=== PATIENT | male | born 1985 | race Caucasian/White ===

== ENCOUNTER 2017-12-14 05:29 | Emergency (ER) | payer MEDICAID ==
[2017-12-14] MEDS ORDERED: ACETAMINOPHEN 500 MG TABLET PO STA (05:42)
[2017-12-14] MEDS ORDERED: DEXAMETHASONE 10 MG/ML VIAL PO STA (05:42)
[2017-12-14] MEDS ORDERED: KETOROLAC 60 MG/2 ML VIAL IM STA (05:42)
--- NOTE | 2017-12-14 05:52 | ED Physician Documentation ---
PD HPI BACK PAIN - Stated complaint Stated Complaint: BACK PX - Chief complaint Chief Complaint: Back Pain - History obtained from History obtained from: Patient, Family - History of Present Illness Timing - onset: How many weeks ago (1) Timing - details: Intermittant, Waxing and waning Location: Upper, Right Quality: Pain, Spasm, Similar to prior episodes Associated symptoms: No: Fever, Weakness, Numbness, Incontinent of urine Contributing factors: Lifting Similar symptoms before: Work up / diagnostics, Treatment Recently seen: Not recently seen - Additional information Additional information: Patient is a 32 year old male with a history of cebral palsy who is presenting to the emergency department for back pain. Patient and mother state that the patient fell about a week ago and they have trying to work with his rehab doctors. patient had an extended training session on his bike which led to a spasm in the right side of his back. the pain has improved with tylenol. Review of Systems Constitutional: denies: Fever, Chills Eyes: denies: Decreased vision Ears: reports: Reviewed and negative Nose: reports: Reviewed and negative Throat: reports: Reviewed and negative Respiratory: reports: Reviewed and negative GI: denies: Nausea, Vomiting : denies: Dysuria, Frequency, Hesitancy, Hematuria Skin: denies: Rash, Lesions, Abrasion (s), Laceration (s) Musculoskeletal: reports: Back pain Neurologic: denies: Headache PD PAST MEDICAL HISTORY - Past Medical History Past Medical History: Yes Neuro: Cerebral palsy - Past Surgical History Past Surgical History: Yes - Present Medications Home Medications: Ambulatory Orders Medication Instructions Recorded Confirmed diazePAM [Valium] 5 - 10 mg PO TID PRN #15 tablet 12/14/17 - Allergies Allergies/Adverse Reactions: Allergies Allergy/AdvReac Type Severity Reaction Status Date / Time diphenhydramine Allergy Unknown Verified 12/14/17 05:42 [From Benadryl] morphine Allergy Emesis Verified 12/14/17 05:42 - Social History Does the pt smoke?: No Smoking Status: Never smoker Does the pt drink ETOH?: No Does the pt have substance abuse?: No - POLST Patient has POLST: No PD ED PE NORMAL - General General: Alert and oriented X 3, No acute distress - HEENT HEENT: Atraumatic, Moist mucous membranes - Cardiac Cardiac: RRR, No murmur - Respiratory Respiratory: No respiratory distress - Abdomen Abdomen: Soft - Derm Derm: Normal color, Warm and dry - Neuro Neuro: Alert and oriented X 3, Normal speech PD ED PE EXPANDED - Back Back: Soft tissue tenderness (tenderness and hypertonicity of right paraspinal muscles) Results - Vitals Vitals: Vital Signs - 24 hr 12/14/17 12/14/17 05:34 06:02 Temperature 36.4 C L Heart Rate 67 62 Respiratory 18 18 Rate Blood Pressure 150/99 H 135/95 H O2 Saturation 96 93 Oxygen O2 Source Room air PD MEDICAL DECISION MAKING - ED course Complexity details: reviewed old records, reviewed results, re-evaluated patient , considered differential, d/w patient, d/w family ED course: patient was seen and examined at bedside. patient was in no acute distress. More thorough diagnostics were offered but mother stated this was a recurrent problem so they weren't necessary. patient was treated with toradol, decadron and tylenol. Prescriptions were written. patient required no further work up and was stable for discharge with outpatient follow up. Departure - Departure Disposition: 01 Home, Self Care Clinical Impression: Back muscle spasm Condition: Good Instructions: ED Spasm Back No Trauma Follow-Up: Margarita Lott DO [Primary Care Provider] - As Needed Prescriptions: diazePAM [Valium] 5 - 10 mg PO TID PRN #15 tablet PRN Reason: Spasms Comments: Your symptoms today are likely secondary to muscle spams. You should continue working with physical therapy. You can use ice or heat as needed and naproxen and tylenol for pain. You can try valium for additional spasm. You should follow up with your doctor if your sympotms persist. You may return to the emergency department at any time for new worsening or uncontrollable symptoms. Discharge Date/Time: 12/14/17 06:02
[2017-12-14] MEDS ORDERED: CHERRY SYRUP 10 ML UDC PO ONE (05:56)
[2017-12-14 06:02] VITALS: BP 135/95
== END 2017-12-14 06:02 | disposition home or self-care (01) ==
LOC: ED 05:29
DX: M62.830 Muscle spasm of back (principal); G80.9 Cerebral palsy, unspecified
CPT/HCPCS: 96372; 99283; A9270

== ENCOUNTER 2019-08-18 12:42 | Outpatient (CLI) | payer MEDICAID ==
--- NOTE | 2019-08-19 11:54 | MRI Report ---
Reason: ACQ LUMBAR SPONDYLOLISTHESIS Procedure Date: 08/18/2019 Accession Number: [id number] / [id number] Procedure: MRI - Lumbar Spine W/O CPT Code: FULL RESULT: EXAM: MRI LUMBAR SPINE WITHOUT CONTRAST EXAM DATE: 08/18/2019 02:24 PM. CLINICAL HISTORY: ACQ LUMBAR SPONDYLOLISTHESIS. COMPARISON: 12/17/2017 lumbar spine radiographs.. TECHNIQUE: Multiplanar, multisequence T1-weighted and fluid-sensitive sequences of the lumbar spine from T12 to S1 without contrast. Other: None. FINDINGS: Spinal Canal: The conus terminates at L2. The conus medullaris and cauda equina are unremarkable. Alignment: L5 spondylolysis with grade 1 anterolisthesis of L5 on S1 measuring 7 mm. Mild levoscoliosis and not well evaluated on the localization sequence. Bone Marrow: Five [id number] lumbar vertebral bodies are assumed. No acute fractures. Chronic L5 spondylolysis. Intraosseous hemangioma within the T12 vertebral body. Otherwise normal marrow signal. There is congenital shortening of the pedicles throughout the lumbar spine. Disk Levels/Facets: T12-L1: Baseline central canal stenosis with a superimposed right subarticular disk protrusion and mild facet arthropathy resulting in asymmetric right lateral recess stenosis. No foraminal stenosis. L1-L2: Baseline central canal stenosis. Shallow right central disk protrusion. No foraminal stenosis. Mild facet arthropathy. L2-L3: Baseline central canal stenosis. No disk bulge or protrusion. No foraminal stenosis. L3-L4: Baseline central canal stenosis. Shallow central disk protrusion and mild facet arthropathy result in mild central canal and bilateral foraminal stenosis. L4-L5: Baseline central canal stenosis. Shallow central disk protrusion and mild facet arthropathy results in mild central canal and bilateral foraminal stenosis. L5-S1: L5 spondylolysis with grade 1 anterolisthesis and uncovering of the disk, resulting in moderate central canal and bilateral foraminal stenosis. Musculature: Normal. No edema or fatty atrophy. Other: The partially visualized retroperitoneum is unremarkable. IMPRESSION: 1. L5 spondylolysis with grade 1 anterolisthesis and uncovering of the disk results in moderate central canal and bilateral foraminal stenosis. 2. 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 3. Shallow central disk protrusions at L3-L4 and L4-L5 with mild facet arthropathy, resulting in mild central canal and bilateral foraminal stenoses. 4. At T12-L1, a right subarticular disk protrusion and mild facet arthropathy results in asymmetric right lateral recess stenosis with superimposed baseline central canal stenosis. Comment: The following findings are so common in adults without low back pain that while we report their presence, they must be interpreted with caution and in the context of the clinical situation. (Reference Eliok et al, Spine 2001) Prevalence of findings in patients without low back pain: Disk degeneration (any evidence): 92% Disk desiccation/T2 signal loss: 83% Disk height loss: 56% Disk bulge: 64% Disk protrusion: 32% Annular tear/high intensity zone: 38% RADIA
[2019-08-19] MEDS ORDERED: BUFFERED LIDOCAINE 10 ML SYRINGE IU ONE (14:17)
--- NOTE | 2019-08-21 10:44 | XRAY Report ---
Reason: COUGH AFTER EATING Procedure Date: 08/18/2019 Accession Number: [id number] / [id number] Procedure: FL - Modified Barium Swallow W/SP CPT Code: FULL RESULT: EXAM: MODIFIED BARIUM SWALLOW EXAM DATE: 08/18/2019 01:40 PM. CLINICAL HISTORY: Cough after eating. COMPARISON: None. TECHNIQUE: Under the direction of speech pathology, patient swallowed various consistencies of barium under lateral fluoroscopic observation of the neck. Fluoroscopy Time: 1 minute 15 seconds. Number of Images: 120. FINDINGS: Swallowing Mechanism: Normal oral phase and swallowing reflex. Airway Protection: Normal epiglottic motion. No episodes of tracheal penetration or aspiration with all consistencies of barium. Pharynx: Normal. No significant vallecular or piriform sinus contrast pooling. Other: None. IMPRESSION: No aspiration detected. RADIA
== END 2019-08-18 12:43 | disposition home or self-care (01) ==
LOC: DI 12:42
PROVIDERS: ATTEND Family Medicine
DX: M43.06 Spondylolysis, lumbar region (principal); M51.26 Other intervertebral disc displacement, lumbar region; M51.25 Other intervertebral disc displacement, thoracolumbar region; M47.816 Spondylosis without myelopathy or radiculopathy, lumbar region; M47.815 Spondylosis without myelopathy or radiculopathy, thoracolumbar region; R05 Cough
CPT/HCPCS: 72148; 74230

== ENCOUNTER 2020-12-30 18:33 | Outpatient (CLI) | payer MEDICAID | END 2020-12-30 18:34 | disposition left against medical advice (07) | LOC: EMS 18:33 | DX: M79.632 Pain in left forearm (principal); R26.81 Unsteadiness on feet; W17.89XA Other fall from one level to another, initial encounter; Y92.008 Other place in unspecified non-institutional (private) residence as the place of occurrence of the external cause ==

== ENCOUNTER 2021-04-19 08:00 | Outpatient (CLI) | payer MEDICAID ==
[2021-04-19 18:46] LABS: BASOPHILS # (AUTO) 0.1 10^3/uL (0.0-0.1); BASOPHILS % (AUTO) 1.2 %; EOSINOPHILS # (AUTO) 0.3 10^3/uL (0.0-0.7); EOSINOPHILS % (AUTO) 5.4 %; HCT - HEMATOCRIT 44.7 % (42.0-52.0); HGB - HEMOGLOBIN 15.6 g/dL (14.0-18.0); LYMPHOCYTES # (AUTO) 1.3 10^3/uL (1.5-3.5); LYMPHOCYTES % (AUTO) 22.4 %; MEAN CORPUSCULAR HEMOGLOBIN 30.1 pg (27.0-31.0); MEAN CORPUSCULAR HGB CONC 34.9 g/dL (32.0-36.0); MEAN CORPUSCULAR VOLUME 86.3 fL (80.0-94.0); MONOCYTES # (AUTO) 0.5 10^3/uL (0.0-1.0); MONOCYTES % (AUTO) 8.1 %; NEUTROPHILS # (AUTO) 3.7 10^3/uL (1.5-6.6); NEUTROPHILS % (AUTO) 62.7 %; PLT - PLATELET COUNT 177 10^3/uL (130-450); RED BLOOD COUNT 5.18 10^6/uL (4.70-6.10); RED CELL DISTRIBUTION WIDTH 12.8 % (12.0-15.0)
[2021-04-19 19:04] LABS: ALBUMIN 4.5 g/dL (3.2-5.5); ALBUMIN/GLOBULIN RATIO 1.7 (1.0-2.2); BILIRUBIN,TOTAL 1.2 mg/dL (0.2-1.0); CALCIUM 9.5 mg/dL (8.5-10.3); CREATININE 1.1 mg/dL (0.6-1.2); TOTAL PROTEIN 7.2 g/dL (6.7-8.2)
[2021-04-19 19:17] LABS: THYROID STIMULATING HORMONE 0.62 uIU/mL (0.34-5.60)
== END 2021-04-19 23:59 | disposition home or self-care (01) ==
LOC: LAB.WCP 08:00
PROVIDERS: ATTEND Family Medicine
DX: G80.9 Cerebral palsy, unspecified (principal); E03.9 Hypothyroidism, unspecified
CPT/HCPCS: 36415; 80053; 84443; 85025

== ENCOUNTER 2022-02-01 12:35 | Outpatient (CLI) | payer MEDICAID | END 2022-02-01 12:36 | disposition home or self-care (01) | LOC: LAB.N 12:35 | PROVIDERS: ATTEND Neurological Surgery | DX: Z53.9 Procedure and treatment not carried out, unspecified reason (principal) | CPT/HCPCS: 87640 ==

== ENCOUNTER 2022-02-01 12:53 | Outpatient (CLI) | payer MEDICAID ==
--- NOTE | 2022-02-01 15:24 | XRAY Report ---
PROCEDURE: Hand 3 View LT INDICATIONS: L THUMB PX TECHNIQUE: 3 views of the hand(s) acquired. COMPARISON: None FINDINGS: Bones: No fractures or dislocations. There is mild degenerative change at the first CMC joint. The re is a questionable subtle bony erosion at the distal aspect of the left third distal phalanx. No ot her suspicious bony lesions. Soft tissues: No suspicious soft tissue calcifications. IMPRESSION: 1. Mild right first CMC joint osteoarthritis. 2. Bony erosion of the distal aspect of the left third distal phalanx. No prior studies are available for comparison. This finding may be associated with erosive arthritis. Please correlate with serolog ies. No other suspicious bony lesions. Reviewed by: Kezia Desai MD on 02/01/2022 3:23 PM PDT Approved by: Kezia Desai MD on 02/01/2022 3:23 PM PDT Station ID: [id number]
== END 2022-02-01 12:54 | disposition home or self-care (01) ==
LOC: LAB.N 12:53 → DI.N 12:54
PROVIDERS: ATTEND Family Medicine
DX: G80.9 Cerebral palsy, unspecified (principal); M18.12 Unilateral primary osteoarthritis of first carpometacarpal joint, left hand

== ENCOUNTER 2022-02-06 14:34 | Outpatient (CLI) | payer MEDICAID | END 2022-02-06 23:59 | disposition home or self-care (01) | LOC: LAB.R 14:34 | PROVIDERS: ATTEND Family Medicine | DX: G80.9 Cerebral palsy, unspecified (principal) | CPT/HCPCS: 87640 ==

== ENCOUNTER 2022-05-24 07:58 | Outpatient (CLI) | payer MEDICAID | END 2022-05-24 07:59 | disposition left against medical advice (07) | LOC: EMS 07:58 | DX: Z03.89 Encounter for observation for other suspected diseases and conditions ruled out (principal) ==

== ENCOUNTER 2022-08-21 00:17 | Outpatient (CLI) | payer MEDICAID | END 2022-08-21 00:18 | disposition EMS.NT | LOC: EMS 00:17 | DX: Z03.89 Encounter for observation for other suspected diseases and conditions ruled out (principal) ==

== ENCOUNTER 2022-08-26 18:15 | Outpatient (CLI) | payer MEDICAID | END 2022-08-26 18:16 | disposition left against medical advice (07) | LOC: EMS 18:15 | DX: S00.81XA Abrasion of other part of head, initial encounter (principal); W18.09XA Striking against other object with subsequent fall, initial encounter; Y92.003 Bedroom of unspecified non-institutional (private) residence as the place of occurrence of the external cause ==

== ENCOUNTER 2022-08-28 04:44 | Outpatient (CLI) | payer MEDICAID | END 2022-08-28 04:45 | disposition EMS.NT | LOC: EMS 04:44 | DX: Z03.89 Encounter for observation for other suspected diseases and conditions ruled out (principal) ==

== ENCOUNTER 2022-09-20 08:31 | Outpatient (CLI) | payer MEDICAID | END 2022-09-20 23:59 | disposition EMS.NT | LOC: EMS 08:31 | DX: Z03.89 Encounter for observation for other suspected diseases and conditions ruled out (principal) ==

== ENCOUNTER → 2022-10-03 | Outpatient (CLI) | payer MEDICAID | END | disposition EMS.NT | LOC: EMS 15:06 | DX: Z03.89 Encounter for observation for other suspected diseases and conditions ruled out (principal) ==

== ENCOUNTER → 2022-10-14 | Outpatient (CLI) | payer MEDICAID | END | disposition EMS.NT | LOC: EMS 06:13 | DX: Z03.89 Encounter for observation for other suspected diseases and conditions ruled out (principal) ==

== ENCOUNTER 2022-11-01 10:57 | Outpatient (CLI) | payer MEDICAID ==
[2022-11-01 11:12] LABS: BASOPHILS # (AUTO) 0.1 10^3/uL (0.0-0.1); BASOPHILS % (AUTO) 1.4 %; EOSINOPHILS # (AUTO) 0.4 10^3/uL (0.0-0.7); EOSINOPHILS % (AUTO) 8.5 %; HCT - HEMATOCRIT 47.9 % (42.0-52.0); HGB - HEMOGLOBIN 16.1 g/dL (14.0-18.0); LYMPHOCYTES # (AUTO) 1.4 10^3/uL (1.5-3.5); LYMPHOCYTES % (AUTO) 29.3 %; MEAN CORPUSCULAR HEMOGLOBIN 29.5 pg (27.0-31.0); MEAN CORPUSCULAR HGB CONC 33.6 g/dL (32.0-36.0); MEAN CORPUSCULAR VOLUME 87.9 fL (80.0-94.0); MEAN PLATELET VOLUME 8.3 fL (7.4-11.4); MONOCYTES # (AUTO) 0.4 10^3/uL (0.0-1.0); MONOCYTES % (AUTO) 7.6 %; NEUTROPHILS # (AUTO) 2.6 10^3/uL (1.5-6.6); PLT - PLATELET COUNT 209 10^3/uL (130-450); RED BLOOD COUNT 5.45 10^6/uL (4.70-6.10); RED CELL DISTRIBUTION WIDTH 13.6 % (12.0-15.0); WHITE BLOOD COUNT 4.8 x10^3/uL (4.8-10.8)
[2022-11-01 11:30] LABS: ALBUMIN 4.5 g/dL (3.2-5.5); ALBUMIN/GLOBULIN RATIO 1.3 (1.0-2.2); ALKALINE PHOSPHATASE 97 IU/L (42-121); ALT ALANINE AMINOTRANSFERASE 44 IU/L (10-60); AST ASPARTATE AMINOTRANSFERASE 36 IU/L (10-42); BILIRUBIN,TOTAL 0.6 mg/dL (0.2-1.0); BUN - BLOOD UREA NITROGEN 17 mg/dL (6-20); CALCIUM 9.7 mg/dL (8.5-10.3); CARBON DIOXIDE - CO2 32 mmol/L (21-32); CHLORIDE 101 mmol/L (101-111); CHOL/HDL RATIO 4.1 (<5.0); CHOLESTEROL 188 mg/dL; CREATININE 0.9 mg/dL (0.6-1.2); GFR - MDRD 95 (>89); GLUCOSE 87 mg/dL (70-100); HDL CHOLESTEROL 46 mg/dL; LDL CHOLESTEROL,CALCULATED 124 mg/dL; LDL/HDL RATIO 2.7 (<3.6); POTASSIUM 4.2 mmol/L (3.5-5.0); SODIUM 139 mmol/L (135-145); TRIGLYCERIDES 90 mg/dL; VLDL CHOLESTEROL 18 mg/dL
[2022-11-01 11:41] LABS: THYROID STIMULATING HORMONE 0.56 uIU/mL (0.34-5.60)
== END 2022-11-01 10:58 | disposition home or self-care (01) ==
LOC: LAB 10:57
PROVIDERS: ATTEND Internal Medicine
DX: G80.9 Cerebral palsy, unspecified (principal); Z13.220 Encounter for screening for lipoid disorders; Z13.29 Encounter for screening for other suspected endocrine disorder
CPT/HCPCS: 36415; 80053; 80061; 83721; 84443; 85025

== ENCOUNTER 2022-11-10 20:03 | Outpatient (CLI) | payer MEDICAID | END 2022-11-10 20:04 | disposition EMS.NT | LOC: EMS 20:03 | DX: Z03.89 Encounter for observation for other suspected diseases and conditions ruled out (principal) ==

== ENCOUNTER 2022-11-28 17:31 | Outpatient (CLI) | payer MEDICAID | END 2022-11-28 17:32 | disposition left against medical advice (07) | LOC: EMS 17:31 | DX: Z03.89 Encounter for observation for other suspected diseases and conditions ruled out (principal) ==

== ENCOUNTER 2022-12-21 08:55 | Outpatient (CLI) | payer MEDICAID | END 2022-12-21 08:56 | disposition EMS.NT | LOC: EMS 08:55 | DX: Z03.89 Encounter for observation for other suspected diseases and conditions ruled out (principal) ==

== ENCOUNTER 2022-12-28 21:16 | Outpatient (CLI) | payer MEDICAID | END 2022-12-28 21:17 | disposition EMS.NT | LOC: EMS 21:16 | DX: Z03.89 Encounter for observation for other suspected diseases and conditions ruled out (principal) ==

== ENCOUNTER 2023-01-16 08:00 | Outpatient (CLI) | payer MEDICAID ==
[2023-01-16 18:34] LABS: BILIRUBIN,URINE NEGATIVE (NEGATIVE); GLUCOSE, URINE (UA) NEGATIVE (NEGATIVE); KETONES,URINE (UA) NEGATIVE (NEGATIVE); LEUKOCYTE ESTERASE, URINE NEGATIVE (NEGATIVE); NITRITE,URINE NEGATIVE (NEGATIVE); OCCULT BLOOD,URINE NEGATIVE (NEGATIVE); PROTEIN,URINE NEGATIVE (NEGATIVE); UROBILINOGEN,URINE 0.2 (NORMAL) E.U./dL (NORMAL)
[2023-01-16 18:52] LABS: CLARITY,URINE CLEAR (CLEAR)
== END 2023-01-16 23:59 | disposition home or self-care (01) ==
LOC: LAB.N 08:00
PROVIDERS: ATTEND Internal Medicine
DX: R39.15 Urgency of urination (principal)
CPT/HCPCS: 81001; 81003; 87086

== ENCOUNTER 2023-02-28 00:59 | Outpatient (CLI) | payer MEDICAID | END 2023-02-28 01:00 | disposition EMS.NT | LOC: EMS 00:59 | DX: Z03.89 Encounter for observation for other suspected diseases and conditions ruled out (principal) ==

== ENCOUNTER 2023-03-21 11:57 | Outpatient (CLI) | payer MEDICAID ==
--- NOTE | 2023-03-21 13:47 | XRAY Report ---
PROCEDURE: Chest 2 View X-Ray INDICATIONS: ACUTE COUGH, POSSIBLE ASPIRATION. TECHNIQUE: 2 views of the chest were acquired. COMPARISON: Chest x-ray 01/16/2017 FINDINGS: Surgical changes and devices: None. Lungs and pleura: Slight appearance of interstitial prominence. This is most notable in the left bas al Mediastinum: Mediastinal contours appear normal. Heart size is normal. Bones and chest wall: No suspicious bony lesions. Overlying soft tissues appear unremarkable. IMPRESSION: Mild appearance of interstitial prominence within the left base. It is noted this is poor inspiratory effort. However, developing airspace disease cannot be excluded. The Reviewed by: Andie Clayton MD on 03/21/2023 1:46 PM PDT Approved by: Andie Clayton MD on 03/21/2023 1:46 PM PDT Station ID: [id number]
== END 2023-03-21 11:58 | disposition home or self-care (01) ==
LOC: DI.N 11:57
PROVIDERS: ATTEND Internal Medicine
DX: Z01.812 Encounter for preprocedural laboratory examination (principal); R05.1 Acute cough
CPT/HCPCS: 36415; 80053; 84443; 85025; 85610; 85730; 87640

== ENCOUNTER 2023-03-21 12:00 | Outpatient (CLI) | payer MEDICAID ==
[2023-03-21 17:40] LABS: BASOPHILS % (AUTO) 0.7 %; EOSINOPHILS # (AUTO) 0.2 10^3/uL (0.0-0.7); HCT - HEMATOCRIT 45.5 % (42.0-52.0); LYMPHOCYTES # (AUTO) 0.9 10^3/uL (1.5-3.5); LYMPHOCYTES % (AUTO) 14.6 %; MEAN CORPUSCULAR HEMOGLOBIN 29.9 pg (27.0-31.0); MEAN CORPUSCULAR VOLUME 90.8 fL (80.0-94.0); MEAN PLATELET VOLUME 9.2 fL (7.4-11.4); MONOCYTES # (AUTO) 0.4 10^3/uL (0.0-1.0); MONOCYTES % (AUTO) 7.3 %; NEUTROPHILS # (AUTO) 4.5 10^3/uL (1.5-6.6); NEUTROPHILS % (AUTO) 74.2 %; PLT - PLATELET COUNT 169 10^3/uL (130-450); RED BLOOD COUNT 5.01 10^6/uL (4.70-6.10)
[2023-03-21 17:41] LABS: INR 1.5 (0.8-1.2); PT - PROTHROMBIN TIME 16.8 secs (9.9-12.6)
[2023-03-21 17:51] LABS: ALBUMIN/GLOBULIN RATIO 1.3 (1.0-2.2); BILIRUBIN,TOTAL 0.7 mg/dL (0.2-1.0); CALCIUM 9.5 mg/dL (8.5-10.3); CREATININE 0.8 mg/dL (0.6-1.2); POTASSIUM 4.1 mmol/L (3.5-5.0); TOTAL PROTEIN 7.1 g/dL (6.7-8.2)
[2023-03-21 18:07] LABS: THYROID STIMULATING HORMONE 0.86 uIU/mL (0.34-5.60)
== END 2023-03-21 12:01 | disposition home or self-care (01) ==
LOC: LAB.N 12:00
PROVIDERS: ATTEND Internal Medicine
DX: Z01.812 Encounter for preprocedural laboratory examination (principal)
CPT/HCPCS: 36415; 80053; 84443; 85025; 85610; 85730; 87640

== ENCOUNTER 2024-03-12 11:19 | Outpatient (CLI) | payer MEDICAID ==
[2024-03-12 17:52] LABS: ALBUMIN 4.5 g/dL (3.2-5.5); ALBUMIN/GLOBULIN RATIO 1.4 (1.0-2.2); ALKALINE PHOSPHATASE 117 IU/L (42-121); ALT ALANINE AMINOTRANSFERASE 29 IU/L (10-60); AST ASPARTATE AMINOTRANSFERASE 25 IU/L (10-42); BILIRUBIN,TOTAL 0.8 mg/dL (0.2-1.0); BUN - BLOOD UREA NITROGEN 18 mg/dL (6-20); CALCIUM 10.4 mg/dL (8.5-10.3); CARBON DIOXIDE - CO2 33 mmol/L (21-32); CHLORIDE 104 mmol/L (101-111); CHOL/HDL RATIO 5.1 (<5.0); CHOLESTEROL 197 mg/dL; CREATININE 0.9 mg/dL (0.6-1.3); GFR - MDRD 95 (>89); GLUCOSE 81 mg/dL (74-104); HDL CHOLESTEROL 39 mg/dL; LDL CHOLESTEROL,CALCULATED 135 mg/dL; LDL/HDL RATIO 3.5 (<3.6); POTASSIUM 4.4 mmol/L (3.5-4.5); SODIUM 140 mmol/L (135-145); TOTAL PROTEIN 7.7 g/dL (6.4-8.9); TRIGLYCERIDES 114 mg/dL (48-352); VLDL CHOLESTEROL 23 mg/dL
[2024-03-12 17:58] LABS: BASOPHILS # (AUTO) 0.1 10^3/uL (0.0-0.1); BASOPHILS % (AUTO) 1.1 %; EOSINOPHILS # (AUTO) 0.5 10^3/uL (0.0-0.7); HCT - HEMATOCRIT 47.4 % (42.0-52.0); LYMPHOCYTES # (AUTO) 1.5 10^3/uL (1.5-3.5); LYMPHOCYTES % (AUTO) 27.7 %; MEAN CORPUSCULAR HEMOGLOBIN 29.8 pg (27.0-31.0); MEAN CORPUSCULAR HGB CONC 33.8 g/dL (32.0-36.0); MEAN CORPUSCULAR VOLUME 88.3 fL (80.0-94.0); MEAN PLATELET VOLUME 9.2 fL (7.4-11.4); MONOCYTES # (AUTO) 0.4 10^3/uL (0.0-1.0); MONOCYTES % (AUTO) 7.9 %; NEUTROPHILS % (AUTO) 54.1 %; PLT - PLATELET COUNT 189 10^3/uL (130-450); RED BLOOD COUNT 5.37 10^6/uL (4.70-6.10); RED CELL DISTRIBUTION WIDTH 13.3 % (12.0-15.0); THYROID STIMULATING HORMONE 0.66 uIU/mL (0.34-5.60); WHITE BLOOD COUNT 5.5 x10^3/uL (4.8-10.8)
== END 2024-03-12 11:20 | disposition home or self-care (01) ==
LOC: LAB.N 11:19
PROVIDERS: ATTEND Internal Medicine
DX: G62.9 Polyneuropathy, unspecified (principal); Z13.220 Encounter for screening for lipoid disorders; F41.8 Other specified anxiety disorders
CPT/HCPCS: 36415; 80053; 80061; 83721; 84443; 85025

== ENCOUNTER 2024-03-29 14:02 | Outpatient (CLI) | payer MEDICAID ==
--- NOTE | 2024-04-01 14:19 | MRI Report ---
PROCEDURE: Lumbar Spine WO INDICATIONS: FECAL INCONTINENCE, CEREBRAL PALSY TECHNIQUE: Multiplanar multisequential MRI images of the lumbar spine were obtained without intraven ous contrast. COMPARISON: 08/18/2019 FINDINGS: Alignment and Curvature: Grade 1 anterior spondylolisthesis at L5-S1 associated with bilateral L5 pa rs defects Bone Marrow: Typical T12 vertebral body hemangioma. Spinal Cord: Conus medullaris terminates at the L1 level. Visualized cord demonstrates normal signa l and size. Paraspinal Soft Tissues: Unremarkable perivertebral soft tissues. T12-L1: Normal in appearance. L1-L2: Posterior disc bulge with mild central stenosis appear no foraminal stenosis L2-L3: Disc bulge and hypertrophic facet joints at. Mild to moderate central stenosis. No foramina l stenosis. L3-L4: Disc bulge and evidence of prior intervention in the posterior soft tissues. Arthropathy con tributes to moderate central stenosis. Moderate right and no left foraminal stenosis. L4-L5: Disc bulge with hypertrophic facet joints. Mild to moderate central stenosis appear no left foraminal stenosis appear moderate right foraminal stenosis. L5-S1: Spondylolisthesis and arthropathy contribute to moderate to severe central stenosis . Moder ate bilateral foraminal stenosis. IMPRESSION: Multilevel degenerative disc disease and arthropathy results in varying degrees of central and forami nal stenosis, increased from the prior exam. Grade 1 isthmic spondylolisthesis L5-S1, stable Reviewed by: Rishi Garcia MD on 04/01/2024 1:17 PM STEFANIE Approved by: Rishi Garcia MD on 04/01/2024 1:17 PM AKDT Station ID: [id number]
== END 2024-03-29 14:03 | disposition home or self-care (01) ==
LOC: DI 14:02
PROVIDERS: ATTEND Internal Medicine
DX: M51.36 Other intervertebral disc degeneration, lumbar region (principal); M47.816 Spondylosis without myelopathy or radiculopathy, lumbar region; M47.817 Spondylosis without myelopathy or radiculopathy, lumbosacral region; M43.17 Spondylolisthesis, lumbosacral region; M48.061 Spinal stenosis, lumbar region without neurogenic claudication; M48.07 Spinal stenosis, lumbosacral region